=== PATIENT | male | born 1965 | race Two or more races ===

== ENCOUNTER 2017-11-03 17:37 | Emergency (ER) | payer BC ==
[2017-11-03] MEDS ORDERED: Albuterol 0.083% 2.5 MG/3 ML Neb Soln NEB ONE (18:20)
--- NOTE | 2017-11-03 19:23 | EDM.PDOC ---
ED HPI GENERAL MEDICAL PROBLEM - General Chief Complaint: Respiratory Problem Stated Complaint: COLD Time Seen by Provider: 11/03/17 18:12 Source of Information: Reports: Patient, RN Notes Reviewed - History of Present Illness INITIAL COMMENTS - FREE TEXT/NARRATIVE: 52-year-old male comes in with severe cough, intermittent difficulty breathing. He states this is especially worse at night when he is trying to sleep and when he first awakens in the morning. He states that "I can hear myself wheeze". He has had cough, nasal and sinus congestion for about the last 2 weeks. His been coughing up yellowish colored phlegm. Gets some post nasal drainage. He does have history of heart disease. He did have an angiogram last summer that did show at least some significant blockage. They were not able to put a stent according to patient but apparently did put in some type of a "coil or spring" unfortunately he does continue to smoke. No recent fever or chills. No abdominal pain nausea or vomiting. 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 States that the stent did not work and this was placed instead Social & Family History - Tobacco Use Smoking Status *Q: Current Every Day Smoker Years of Tobacco use: 35 Packs/Tins Daily: 0.5 - Caffeine Use Caffeine Use: Reports: None Other Caffeine Use: decaff coffee - Recreational Drug Use Recreational Drug Use: No ED ROS GENERAL - Review of Systems Review Of Systems: See Below Constitutional: Denies: Fever, Chills, Diaphoresis HEENT: Reports: Sinus Problem (Posterior nasal drainage). Denies: Throat Pain Respiratory: Reports: Shortness of Breath, Wheezing (Intermittent), Cough ( mittens worse at night), Sputum Cardiovascular: Reports: Chest Pain (Yellow with coughing) GI/Abdominal: Denies: Abdominal Pain, Nausea, Vomiting Musculoskeletal: Denies: Neck Pain, Shoulder Pain, Arm Pain, Back Pain Skin: Reports: No Symptoms Neurological: Reports: No Symptoms ED EXAM, GENERAL - Physical Exam Exam: See Below General Appearance: Alert, No Apparent Distress Eye Exam: Bilateral Eye: PERRL Nose: Normal Inspection Throat/Mouth: Normal Inspection, Normal Oropharynx Head: No: Facial Swelling, Facial Tenderness Neck: Supple, Full Range of Motion Respiratory/Chest: No Respiratory Distress, No Accessory Muscle Use, Rhonchi ( Mild bilateral wheezing a few scattered bilateral rhonchi), Wheezing Cardiovascular: Regular Rate, Rhythm GI/Abdominal: Soft, Non-Tender Back Exam: No: CVA Tenderness (L), CVA Tenderness (R) Extremities: Normal Inspection. No: Pedal Edema, Leg Pain Neurological: Alert, No Motor/Sensory Deficits Skin Exam: Warm, Dry, Normal Color EKG INTERPRETATION EKG Date: 11/03/17 Rhythm: NSR [place]: Normal QRS: Other (Q waves inferior leads) Course - Vital Signs Last Recorded V/S: Last Vital Signs Temp 98.1 F 11/03/17 18:02 Pulse 91 11/03/17 18:02 Resp 16 11/03/17 18:02 BP 144/94 H 11/03/17 18:02 Pulse Ox 97 11/03/17 18:37 - Orders/Labs/Meds Orders: Active Orders 24 hr Category Date Time Status EKG 12 Lead [EKG Documentation Completion] [RC] STAT Care 11/03/17 18:20 Active RT Aerosol Therapy [RC] ASDIRECTED Care 11/03/17 18:20 Active CXR [Chest 2V] [CR] Stat Exams 11/03/17 18:20 Taken Meds: Medications Discontinued Medications Generic Name Dose Route Start Last Admin Trade Name [place] PRN Reason Stop Dose Admin Albuterol 2.5 mg 11/03/17 18:20 11/03/17 18:36 Proventil Neb Soln NEB 11/03/17 18:21 2.5 mg ONETIME ONE Administration - Re-Assessments/Exams Free Text/Narrative Re-Assessment/Exam: 11/03/17 19:49 Patient feels like he is breathing much better after the albuterol neb treatment. Discharge instructions as documented. Departure - Departure Time of Disposition: 19:23 Disposition: Home, Self-Care 01 Condition: Fair Clinical Impression: Bronchitis - Discharge Information Instructions: Acute Bronchitis, Adult, [id number] Referrals: PCP,None [Primary Care Provider] - Forms: ED Department Discharge Additional Instructions: Vaporizer steam as needed, try stop smoking, Z-Lex antibiotic as prescribed, that will stay in your system for about 8-10 days, albuterol inhaler as needed for severe cough, wheezing or difficulty breathing. Follow-up with your regular medical provider or at our [facility] medical clinic if not much better within 5-7 days as expected. If you continue to have any symptoms suggestive of sleep apnea see one of our medical providers to discuss having a sleep study done. - My Orders Last 24 Hours: My Active Orders 11/03/17 18:20 EKG 12 Lead [EKG Documentation Completion] [RC] STAT RT Aerosol Therapy [RC] ASDIRECTED CXR [Chest 2V] [CR] Stat - Assessment/Plan Last 24 Hours: My Active Orders 11/03/17 18:20 EKG 12 Lead [EKG Documentation Completion] [RC] STAT RT Aerosol Therapy [RC] ASDIRECTED CXR [Chest 2V] [CR] Stat
--- NOTE | 2017-11-04 07:32 | CR ---
Chest: Two views of the chest were obtained. Comparison: No prior study. Heart size and mediastinum are normal. Lungs are clear without acute parenchymal densities. Bony structures are within normal limits for the patient's age. Impression: 1. Nothing acute is seen on two-view chest x-ray. Diagnostic code #1
== END 2017-11-03 19:47 | disposition home or self-care (01) ==
LOC: JD.ED 17:37
DX: J40 Bronchitis, not specified as acute or chronic (principal); F17.210 Nicotine dependence, cigarettes, uncomplicated
CPT/HCPCS: 71046; 71046-26; 93005; 93010; 94640; 99284; 99284-25